=== PATIENT | male | born 2000 | race Caucasian/White ===

== ENCOUNTER 2023-09-30 10:50 | Outpatient (REF) | payer OTHER, SELFPAY ==
--- NOTE | ~2023-09-30 | US_ITS ---
EXAMINATION: US SCROTUM CLINICAL INFORMATION: Left testicle pain. Palpable lump. COMPARISON: None available. TECHNIQUE: A sonogram of the scrotum was performed assessing frye-scale appearance and color Doppler flow. Spectral Doppler analysis of the arterial and venous flow were performed in the testes bilaterally. FINDINGS: RIGHT: Right testicle measures 4.6 x 2.5 x 3.4 cm, volume 21 mL. No focal testicular parenchymal lesions are visualized. Spectral Doppler analysis of the arterial and venous flow is normal in the right testis. Right epididymal head is normal in size. No right hydrocele or varicocele is seen. Right epididymal Doppler flow is normal. LEFT: Left testicle measures 4.7 x 2.6 x 3.2 cm, volume 20 mL. No focal testicular parenchymal lesions are visualized. Spectral Doppler analysis of the arterial and venous flow is normal in the left testis. Left epididymal head is normal in size. No left hydrocele or varicocele is seen. Left epididymal Doppler flow is normal. The saw repairer reports directly examining the area of palpable concern as localized by the patient with no abnormality demonstrated. US/US scrotum IMPRESSION: The patient directed the saw repairer to the area of palpable concern. No discrete abnormality is seen at that location. Normal scrotal ultrasound with no testicular or epididymal masses seen.
== END 2023-09-30 10:51 | disposition home or self-care (01) ==
LOC: HO.UMASIMG 10:50
PROVIDERS: Visit Provider Internal Medicine
DX: N50.812 Left testicular pain (principal)
CPT/HCPCS: 76870